=== PATIENT | female | born 1995 | race Caucasian/White ===

== ENCOUNTER 2020-06-13 15:20 | Emergency (ER) | payer OTHER ==
[2020-06-13 15:28] VITALS: TEMP 98.5; BMI 17.4
--- OUTSIDE RECORDS SUMMARY | 2020-06-13 15:38 | XMS ---
:1995 Author Organization [facility] Care Team Providers Name Role Phone Alayna Turner Unavailable Unavailable Anya Castellano Unavailable Unavailable Re-disclosure Warning The records that you are about to access may contain information from federally- assisted alcohol or drug abuse programs. If such information is present, then the following federally mandated warning applies: This information has been disclosed to you from records protected by federal confidentiality rules (42 CFR part 2). The federal rules prohibit you from making any further disclosure of this information unless further disclosure is expressly permitted by the written consent of the person to whom it pertains or as otherwise permitted by 42 CFR part 2. A general authorization for the release of medical or other information is NOT sufficient for this purpose. The Federal rules restrict any use of the information to criminally investigate or prosecute any alcohol or drug abuse patient.The records that you are about to access may contain highly sensitive health information, the redisclosure of which is protected by Article 27-F of the [facility] Public Health law. If you continue you may haveaccess to information: Regarding HIV / AIDS; Provided by facilities licensed or operated by the [facility] Office of Mental Health; or Provided by the [facility] Office for People With Developmental Disabilities. If such information is present, then the following [facility] mandated warning applies: This information has been disclosed to you from confidential records which are protected by state law. State law prohibits you from making any further disclosure of this information without the specific written consent of the person to whom it pertains, or as otherwise permitted by law. Any unauthorized further disclosure in violation of state law may result in a fine or group home sentence or both. A general authorization for the release of medical or other information is NOT sufficient authorization for further disclosure. Allergies and Adverse Reactions Type Description Substance Reaction Status Data Source(s ) 3 NO KNOWN ALLERGIES Clindamycin 150 MG NEXTGEN Oral Tablet ([facility] [[facility]] [facility] - [facility]) Propensity to mild lactose No known allergies Unknown Active e CW3 ([facility] adverse reactions intolerance (situation) [facility]) Encounters Encounter Providers Location Date Indications Data Source(s ) Outpatient Attender: Alayna 11/25/2019 NEXTGEN Turner 08:37:00 AM ([facility] EDT [facility]) Outpatient Attender: Alayna 10/15/2019 NEXTGEN Turner 03:06:00 PM ([facility] EST Medical [facility]) Outpatient Attender: Alayna 10/07/2019 NEXTGEN Turner 03:39:00 PM ([facility] EST [facility]) Outpatient Attender: Alayna 10/07/2019 NEXTGEN Turner 03:35:00 PM ([facility] EST [facility]) Outpatient Attender: Alayna 10/06/2019 NEXTGEN KellerReferrer: 10:00:00 AM ([facility] Turner [facility]) Outpatient Attender: Anya 10/06/2019 NEXTGEN AlasioReferrer: 12:00:00 AM ([facility] Alayna Turner [facility]) (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) New Pt [place] [facility] 05/02/2019 eCW3 ([facility] A28 12:00:00 AM [facility] EDT - Care) 05/02/2019 12:00:00 AM EDT Medications Medication Brand Start Product Dose Route Administrative Pharmacy [facility] Indications Reaction Description Data Name Date Form Instructions Instructions Source(s) Multivitami Multiv 05/02/ active Multivi tamin eCW3 n Women - itamin 2019 Women - ([facility] 12:00: [place] - 00 AM [facility] EDT Care) Lysine 500 Lysine 05/02/ active Lysine 5 00 eCW3 MG 500 MG 2019 MG ([place] 12:00: [place] 00 AM [facility] EDT Care) Insurance Providers Payer name Policy type Policy ID Covered Covered libertarian's Policy P danna / Coverage libertarian ID relationship to [facility] [employer] 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 RICKI [id number] [facility] NON [facility] [id number] [facility] Problems, Conditions, and Diagnoses Code Display Name Description Problem Type Effective Data Dates Source(s) E55.9 Vitamin D Vitamin D Problem 05/12/2019 eCW3 ([facility] insufficiency insufficiency 12:00:00 AM [facility] EDT Care) 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 W3 ([facility] 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 12:00:00 AM [facility] EDT Care) N76.1 Chronic vaginitis Chronic vaginitis Problem 05/02/2019 eCW3 ([facility] 12:00:00 AM [facility] EDT [facility]) Z11.3 Encounter for Screening Diagnosis 11/25/2019 NEXTGEN screening for examination for 08:37:00 AM ([facility] infections with a venereal disease EDT edical - [facility] predominantly sexual [facility] mode of transmission [facility]) N89.8 Other specified Vaginal discharge Diagnosis 10/06/2019 NE XTGEN noninflammatory 10:00:00 AM ([facility] disorders of vagina EST Medic al - [facility]) Z01.419 Encounter for Encounter for Diagnosis 10/06/2019 NEXTGEN gynecological gynecological 10:00:00 AM ([facility] examination examination EST Medical - [facility] (general) (routine) [facility] abnormal [facility] ) findings Surgeries/Procedures Procedure Description Date Indications Data Source(s) PREV VISIT NEW AGE PREV VISIT NEW AGE 0110/06/2019 NEX TGEN ([facility] 18-39 18-39 12:00:00 AM Medical - [facility]) Social History Code Duration Value Status Description Data Source(s ) Smoking 05/04/2019 12:00:00 Never Smoker completed Never Smoker e CW3 ([facility]) Never Smoker completed Never Smoker eCW3 ([facility]) Vital Signs ID Date Data Source UNK Name Value Range Interpretation Code Description Data Source(s) Diastolic blood 69 mm[Hg] 69 mm[Hg] eCW3 ([facility]) Systolic blood 102 mm[Hg] 102 mm[Hg] eCW3 ([facility]) Body temperature 97.9 [degF] 97.9 [degF] eCW3 ( [facility]) Body mass index 19.14 kg/m2 19.14 kg/m2 eCW3 ([facility] (BMI) [Ratio] [facility]) Body weight 103 [lb_av] 103 [lb_av] eCW3 ([facility]) Body height 61.5 [in_i] 61.5 [in_i] eCW3 ([facility]) Patient Treatment Plan of Care Planned Activity Planned Date Details Description Data Source (s) Multivitamin Women - 05/02/2019 12:00:00 eCW3 ([facility])
[2020-06-13] MEDS ORDERED: SODIUM CHLORIDE 1,000 ML IV STA (15:42)
[2020-06-13 15:59] LABS: EPI CELLS 12 /uL (0-25.1); HCG,QUALITATIVE URINE Negative; HYALINE CASTS 51 /uL (0-3.1); URINE APPEARANCE TURBID; URINE BILIRUBIN 2+ (NEGATIVE); URINE COLOR RED; URINE GLUCOSE (UA) NEGATIVE (NEGATIVE); URINE KETONE NEGATIVE (NEGATIVE); URINE LEUK ESTERASE 2+ (NEGATIVE); URINE NITRITE POSITIVE (NEGATIVE); URINE PROTEIN 3+ (NEGATIVE); URINE RBC 14876 /uL (0-23.9); URINE UROBILINOGEN 0.2 mg/dL (0.2-1.0); URINE WBC 702 /uL (0-25.8)
--- NOTE | 2020-06-13 16:11 | PDOC ---
History of Present Illness - General Chief Complaint: Lightheaded Stated Complaint: LIGHTHEADED Time Seen by Provider: 06/13/20 15:35 History Source: Patient Exam Limitations: No Limitations - History of Present Illness Initial Comments: 06/13/20 16:08 Patient is a 24-year-old female who presents to the ED with complaint of lightheadedness and feeling of hot flashes that started earlier today while at work. She states this has been ongoing for at least 6 months but typically resolves when she goes outside in the cool air. She states today her lightheadedness did resolve mostly but she continues to get the hot flashes. She has lost roughly 12 pounds in the last 6 months unwarranted. She went from 104 pounds to 92 pounds without trying. She states that she has been slightly intolerant to lactose and every time she eats bread she has to go to the bathroom immediately. She has a follow-up appointment with her primary doctor on June 28 for further evaluation of her weight loss. She denies any fevers or chills. She denies any recent travel. She denies any known COVID contacts. The patient states she had some soda after feeling badly earlier thinking that her sugar was low but it did not help very much. Past History - Medical History Allergies/Adverse Reactions: Allergies Allergy/AdvReac Type Severity Reaction Status Date / Time No Known Allergies Allergy Verified 08/20/12 16:29 Home Medications: Ambulatory Orders No Home Medications 0 dose .ROUTE UTDICT 08/20/12 Cephalexin [Keflex] 500 mg PO BID 7 Days #14 capsule 06/13/20 COPD: No - Reproductive History Is Patient Now?: No - Psycho-Social/Smoking History Smoking Status: No Smoking History: Never smoked Number of Cigarettes Smoked Daily: 0 - Substance Abuse Hx (Audit-C & DAST Scrn) How often the patient has a drink containing alcohol: Monthly or less Score: In Men: 4 or > Positive; In Women: 3 or > Positive: 1 Screen Result (Pos requires Nsg. Audit-10AR): Negative Review of Systems - Review of Systems Comments:: 06/13/20 16:09 - Review of Systems Able to Perform ROS?: Yes Constitutional: No: Fever, Chills, Loss of Appetite, Night Sweats, Weakness; positive: Lightheadedness, hot flashes HEENTM: No: Eye Pain, Vision changes, Ear Pain, Throat Pain, Throat Swelling, Mouth Pain, Difficulty Swallowing Respiratory: No: Cough, Shortness of Breath, Wheezing, Sputum Production Cardiac (ROS): No: Chest Pain, Chest Tightness, Palpitations, Irregular Heart Beat, Edema ABD/GI: No: Nausea, Vomiting, Abdominal Pain, Diarrhea : No Dysuria, No Hematuria, No Frequency, No Urgency, No Vaginal Discharge/Pain Musculoskeletal: No: Muscle Pain, Back Pain, Joint Pain, Muscle Weakness, Neck Pain Integumentary: No: Lesions, Rash Neurological: No: Headache, Numbness, Tingling, Weakness, Speech Difficulties *Physical Exam - Vital Signs Last Vital Signs Temp Pulse Resp BP Pulse Ox 98.5 F 84 20 99/73 100 06/13/20 15:24 06/13/20 15:24 06/13/20 15:24 06/13/20 15:24 06/13/20 15:24 - Physical Exam 06/13/20 16:10 - Physical Exam General Appearance: Nourished, Appropriately Dressed, No Distress HEENT: EOMI, Normal Voice, No Pharyngeal Erythema, No Muffled/Hoarse voice, No Tonsillar Exudate, No Tonsillar Erythema, No Nasal Congestion, No Rhinorrhea, Hearing Grossly Normal, TMs Normal, No TM Bulging, No TM Dullness, No TM Erythema; moist oral mucosa Neck: Supple, No Lymphadenopathy (R), No Lymphadenopathy (L), No Rigidity, No Decreased range of motion Respiratory/Chest: Lungs Clear, Normal Breath Sounds. No Respiratory Distress, No Accessory Muscle Use Cardiovascular: Regular Rhythm, Regular Rate, S1, S2 Gastrointestinal/Abdominal: Normal Bowel Sounds, Soft. Non-tender, No Guarding, No Rebound, No Rigidity Musculoskeletal: Normal Inspection. No Decreased Range of Motion Extremity: Normal Capillary Refill, Normal Inspection Integumentary: Normal Color, Dry. No Rash Neurologic: manager bank II-XII NML intact, Fully Oriented, Alert, Normal Mood/Affect, Normal Response; speaking in full and complete sentences, no ataxia, walking without difficulty ED Treatment Course - LABORATORY CBC & Chemistry Diagram: 06/13/20 15:55 06/13/20 15:55 - ADDITIONAL ORDERS Additional order review: Laboratory Results 06/13/20 15:41 Urine Color Red Urine Appearance Turbid Urine pH 5.0 Ur Specific [place] 1.034 Urine Protein 3+ H Urine Glucose (UA) Negative Urine Ketones Negative Urine Blood 3+ H Urine Nitrite Positive H Urine Bilirubin 2+ H Urine Urobilinogen 0.2 Ur Leukocyte Esterase 2+ H Urine WBC (Auto) 702 Urine RBC (Auto) 12292 Urine Casts (Auto) 51 U Epithel Cells (Auto) 12 Urine HCG, Qual Negative Medical Decision Making - Medical Decision Making 06/13/20 16:10 Assessment: Patient is a 24-year-old female with lightheadedness and hot flashes for the last several hours. Plan: -Labs ordered -1 L of NS ordered -EKG ordered -Will reassess Urine shows evidence of a UTI which can be the cause of the patient's symptoms. Urine was red but the patient is currently on her menses. 06/13/20 16:27 EKG at 15:52: NSR @ [address]/T wave abnormalities 06/13/20 16:44 Patient states that she is feeling much better. I have made her aware that she has evidence of UTI on urinalysis. She is still pending her CMP results. 06/13/20 17:00 The patient CMP is within normal limits as are her cardiac enzymes. We will send a prescription to her pharmacy for Keflex for UTI and her first dose was given here in the ED. She will follow-up with her primary doctor for repeat evaluation and has a follow-up on June 28 regarding her unwarranted weight loss. She understands and agrees with this treatment plan and she is stable for discharge. Discharge - Discharge Information Problems reviewed: Yes Clinical Impression/Diagnosis: Lightheadedness Urinary tract infection Qualifiers: Urinary tract infection type: acute cystitis Hematuria presence: without hematuria Qualified Code(s): N30.00 - Acute cystitis without hematuria Condition: Stable Disposition: HOME - Additional Discharge Information Prescriptions: Cephalexin [Keflex] 500 mg PO BID 7 Days #14 capsule - Follow up/Referral Referrals: Karen Reno MD [Primary Care Provider] - 2 Days - Patient Discharge Instructions Patient Printed Discharge Instructions: DI for Urinary Tract Infection (UTI), DI for Dizziness-Nonvertigo Additional Instructions: Get plenty of rest and drink plenty of fluids. Take the antibiotics as prescribed and complete the entire course. Follow-up with your primary doctor within 1 to 2 days for repeat evaluation. Be sure to continue to follow-up for your unwarranted weight loss for further evaluation and treatment at your appointment on June 28. - Post Discharge Activity Work/Back to School Note: Back to Work
[2020-06-13 16:24] LABS: BASO % 0.4 % (0-2.0); EOS % 0.3 % (0-4.5); HEMATOCRIT 39.3 % (32.4-45.2); HEMOGLOBIN 13.2 GM/dL (10.7-15.3); LYMPH % 11.1 % (8-40); MCH 28.5 pg (25.7-33.7); MCHC 33.6 g/dl (32.0-36.0); MEAN CELL VOLUME 84.8 fl (80-96); MEAN PLT VOLUME 9.3 fl (7.5-11.1); MONO % 7.4 % (3.8-10.2); NEUT % 80.8 % (42.8-82.8); PLATELET COUNT 223 K/MM3 (134-434); RBC 4.63 M/mm3 (3.60-5.2); RDW 14.1 % (11.6-15.6); WHITE BLOOD COUNT 10.2 K/mm3 (4.0-10.0)
[2020-06-13 16:45] LABS: CHLORIDE 106 mmol/L (98-107); POTASSIUM 3.6 mmol/L (3.5-5.1); SODIUM 139 mmol/L (136-145)
[2020-06-13 16:51] LABS: ALBUMIN 4.4 g/dl (3.4-5.0); ANION GAP 7 MMOL/L (8-16); BLOOD UREA NITROGEN 10.9 mg/dL (7-18); CALCIUM 9.1 mg/dL (8.5-10.1); CO2 26 mmol/L (21-32); CREATININE 0.7 mg/dL (0.55-1.3); GLUCOSE,RANDOM 82 mg/dL (74-106); LIPASE 180 U/L (73-393); SGOT/AST 10 U/L (15-37); SGPT/ALT 14 U/L (13-61)
[2020-06-13] MEDS ORDERED: CEPHALEXIN MONOHYDRATE 500 MG CAPSULE (UD) PO ONE (16:54)
[2020-06-13 16:55] LABS: ALK PHOS 60 U/L (45-117); BILIRUBIN,TOTAL 0.7 mg/dL (0.2-1); TOT PROT 7.7 g/dl (6.4-8.2)
[2020-06-13] MEDS ORDERED: CEPHALEXIN MONOHYDRATE 500 MG CAPSULE (UD) ONE (16:59)
[2020-06-13 17:12] LABS: URINE BACTERIA 5264.6 /uL (0-1359)
[2020-06-13 17:16] VITALS: BP 90/58; PULSE 62
--- NOTE | 2020-06-14 17:07 | EKG ---
Test Reason : Blood Pressure : / mmHG Vent. Rate : 070 BPM Atrial Rate : 070 BPM P-R Int : 124 ms QRS Dur : 070 ms QT Int : 384 ms P-R-T Axes : 077 083 044 degrees QTc Int : 414 ms NORMAL SINUS RHYTHM NORMAL ECG NO PREVIOUS ECGS AVAILABLE Confirmed by GILDARDO MARQUES MD ([id number]) on 06/14/2020 5:06:30 PM Referred By: Confirmed By:GILDARDO MARQUES MD
== END 2020-06-13 17:17 | disposition home or self-care (01) ==
LOC: JER 15:20
PROC: 3E0337Z Introduction of Electrolytic and Water Balance Substance into Peripheral Vein, Percutaneous Approach (ICD-10-PCS; principal; 2020-06-13)
DX: R42 Dizziness and giddiness (principal); N30.00 Acute cystitis without hematuria
CPT/HCPCS: 36415; 80053; 81003; 82550; 83690; 84484; 84703; 85025; 87086; 93005; 93010; 99284-25

== ENCOUNTER 2021-08-26 13:51 | Emergency (ER) | payer OTHER ==
[2021-08-26 15:00] VITALS: BP 95/64; PULSE 75; TEMP 97.9; BMI 17.2
== END 2021-08-26 17:16 | disposition home or self-care (01) ==
LOC: JERFT 13:51
PROC: 3E0337Z Introduction of Electrolytic and Water Balance Substance into Peripheral Vein, Percutaneous Approach (ICD-10-PCS; principal; 2021-08-26)
DX: R63.0 Anorexia (principal)
CPT/HCPCS: 96360; 99284-25